=== PATIENT | female | born 2000 | race Two or more races ===

== ENCOUNTER 2024-03-04 09:23 | Emergency (ER) | payer OTHER ==
[~2024-03-04] VITALS: Ht 160 cm; Wt 59.0 kg
[2024-03-04] MEDS ORDERED: CEFP200T12 PO (09:35)
[2024-03-04 09:47] LABS: APPEARANCE,URINE CLEAR (CLEAR); BILIRUBIN,URINE NEGATIVE (NEGATIVE); COLOR,URINE YELLOW (YELLOW); GLUCOSE, URINE (UA) NEGATIVE (NEGATIVE); KETONES,URINE NEGATIVE (NEGATIVE); LEUKOCYTE ESTERASE ,URINE NEGATIVE (NEGATIVE); NITRATE,URINE NEGATIVE (NEGATIVE); OCCULT BLOOD,URINE NEGATIVE (NEGATIVE); PH,URINE 7.5 (5.0-8.0); PROTEIN,URINE TRACE mg/dL (NEGATIVE); SPECIFIC GRAVITIY, URINE 1.027 (1.003-1.030)
[2024-03-04 10:00] LABS: HCG,QUAL URINE NEGATIVE (NEGATIVE)
[2024-03-04 10:05] LABS: RBC,URINE None Seen /HPF (0-2)
[2024-03-04 10:06] LABS: BACTERIA,URINE Few /HPF (None Seen); SQUAMOUS EPITHELIAL CELL,UR Few /LPF (None Seen); WBC,URINE 0-2 /HPF (0-5)
[2024-03-04 13:51] VITALS: BP 110/65; PULSE 90; RESP 18; TEMP 98.3; O2SAT 100
[2024-03-04] MEDS ORDERED: GYNEVAG VG (13:52)
== END 2024-03-04 14:05 | disposition home or self-care (01) ==
LOC: EMS 09:23
DX: B37.31 Acute candidiasis of vulva and vagina (principal); Z32.02 Encounter for pregnancy test, result negative
CPT/HCPCS: 81001; 84703; 87070; 87210; 87491; 87591; 99284; Z7502